=== PATIENT | female | born 1985 | race Caucasian/White ===

== ENCOUNTER 2016-10-28 09:55 | Emergency (ER) | payer MEDICAID ==
[~2016-10-28] VITALS: Ht 162.6 cm; Wt 55.7 kg
[2016-10-28] MEDS ORDERED: CITA20TA5 PO (10:13)
[2016-10-28] MEDS ORDERED: SODIUM CHLORIDE 0.9% 1,000 ML IV ONE (10:21)
[2016-10-28] MEDS ORDERED: SODIUM CHLORIDE FLUSH 10ML SYR IVF ONE (10:30)
[2016-10-28] MEDS ORDERED: LORazepam 2 MG/ML, 1ML IVPush ONE (10:30)
[2016-10-28] MEDS ORDERED: ZIPRASIDONE 20 MG INJ IM ONE ×2 (10:30→10:40)
[2016-10-28] MEDS ORDERED: SODIUM CHLORIDE 0.9% 1,000ML IVBOLUS ONE (10:30)
[2016-10-28 10:40] LABS: DAU SCREEN DISCLAIMER
[2016-10-28] MEDS ORDERED: LORazepam 2 MG/ML, 1ML ONE (10:40)
[2016-10-28 10:56] LABS: ASPARTATE AMINO TRANSFERASE 10 U/L (15-37); BLOOD UREA NITROGEN 13 mg/dL (7-18)
[2016-10-28] MEDS ORDERED: PLEASE ENTER ALLERGIES MC SCH ×2 (11:00)
[2016-10-28 13:35] VITALS: BP 112/77
== END 2016-10-28 13:37 | disposition home or self-care (01) ==
LOC: ED 13:02
DX: F41.9 Anxiety disorder, unspecified (principal); F15.10 Other stimulant abuse, uncomplicated; E86.0 Dehydration
CPT/HCPCS: 36415; 80053; 80307; 81001; 84443; 85025; 87086; 93005; 96361; 96372; 96374; 99285; J2060; J3486; J7030

== ENCOUNTER 2020-11-06 21:59 | Emergency (ER) | payer BC, MEDICAID ==
[~2020-11-06] VITALS: Ht 162.6 cm; Wt 61.2 kg
[~2020-11-06 21:59] MED LIST: CITA20TA6 PO
[2020-11-06 22:11] VITALS: BP 96/58
[2020-11-06] MEDS ORDERED: LIDOCAINE 1%-EPI 1:100K, 20ML ONE (23:14)
[2020-11-06] MEDS ORDERED: LIDOCAINE 1%-EPI 1:100K, 20ML SQ ONE (23:30)
== END 2020-11-07 00:12 | disposition home or self-care (01) ==
LOC: ED 23:00
DX: L02.413 Cutaneous abscess of right upper limb (principal); L03.113 Cellulitis of right upper limb
CPT/HCPCS: 10060